=== PATIENT | female | born 2000 | race Caucasian/White ===

== ENCOUNTER 2023-09-30 19:09 | Emergency (ER) | payer BC, SELFPAY ==
[2023-09-30 19:14] VITALS: BP 147/98
[2023-09-30 19:31] LABS: % Basophils 0.7 % (0-2); % Eosinophils 4.4 % (0-6); % Immature Granulocytes 0.5 % (0-0.5); % Lymphocytes 39.5 % (20.5-51.1); % Monocytes 5.5 % (1.7-9.3); % Neutrophils 49.4 % (42.2-75.2); Absolute Basophils 0.1 10^3/uL (0-0.2); Absolute Eosinophils 0.5 10^3/uL (0-0.7); Absolute Immature Granulocytes 0.1 10^3/uL (0-0.05); Absolute Lymphocytes 4.8 10^3/uL (1.2-3.4); Absolute Monocytes 0.7 10^3/uL (0.1-0.6); Hematocrit 41.4 % (37.0-47.0); Hemoglobin 14.4 g/dL (12.0-16.0); Mean Corp Hgb Conc. 34.8 g/dL (33.0-37.0); Mean Corpuscular Hgb 28.9 pg (27.0-31.0); Mean Platelet Volume 9.1 fL (7.4-10.4); Nucleated Red Blood Cells % 0 %; Platelet Count 361 10^3/uL (130-400); Red Blood Cell Count 4.99 10^6/uL (4.20-5.40); Red Cell Dist. Width 13.2 % (11.5-14.5); White Blood Cell Count 12.1 10^3/uL (4.8-10.8)
[2023-09-30 19:52] LABS: ALT (SGPT) 48 U/L (0-35); AST (SGOT) 36 U/L (14-36); Albumin 4.4 g/dl (3.5-5.0); Alkaline Phosphatase 94 U/L (38-126); Blood Urea Nitrogen 6 mg/dl (7-17); Calcium 9.3 mg/dl (8.4-10.2); Carbon Dioxide 26 mmol/L (22-30); Chloride 105 mmol/L (98-107); Glucose 84 mg/dl (70-99); Lipase 54 U/L (23-300); Potassium 4.2 mmol/L (3.5-5.1); Sodium 137 mmol/L (135-145); Total Bilirubin 0.5 mg/dl (0.2-1.3); Total Protein 7.6 g/dl (6.3-8.2); eGFR > 60.00
[2023-09-30 20:08] LABS: Urine Albumin Trace (Neg - Trace); Urine Bilirubin 1+ (Negative); Urine Character Clear (Clear); Urine Color Yellow; Urine Glucose Negative (Negative); Urine Ketone Trace (Negative); Urine Leukocyte 2+ (Negative); Urine Nitrite Negative (Negative); Urine Occult Blood 1+ (Negative); Urine Urobilinogen Negative (Neg - 1+)
[2023-09-30 20:17] LABS: Urine Squamous Cell >30 /LPF (Few); Urine White Cell 21-25 /HPF (0-5)
[2023-09-30 20:18] LABS: Urine Bacteria Moderate (Negative)
[2023-09-30 22:58] LABS: Urine Albumin Negative (Neg - Trace); Urine Bilirubin Negative (Negative); Urine Character Clear (Clear); Urine Color Yellow; Urine Glucose Negative (Negative); Urine Ketone Negative (Negative); Urine Leukocyte Trace (Negative); Urine Nitrite Negative (Negative); Urine Occult Blood Negative (Negative); Urine Specific Gravity 1.005 (<1.030); Urine Urobilinogen Negative (Neg - 1+)
--- NOTE | 2023-09-30 23:03 | ED.GENMED ---
History of Present Illness
General
Chief Complaint: Abdominal Pain
Source: patient
Exam Limitations: none
Time Seen by Provider: 09/30/23 20:20
Nursing documentation reviewed up to this point in time: agreed with
Travel History
Have you had any contact with someone who has COVID-19?: No
Do you have any symptoms of coronavirus? Fever > 100 degrees, chills, cough, shortness of breath, sore throat, loss of taste or smell, muscle aches, or headache?: No
History of Present Illness
History of Present Illness:
Patient to ED with complaint of abdominal pain x 3 weeks. States pain has become progressively worse. Pain initally was diffuse but now is located on left side of abdomen. Denies fever/chills,n/v/d. She was sent for outpatient CT yesterday by
PCP. No concerning findings n CT. States PCP advised her to come to ED since she was still having pain. Brought to ED by sig/other.
Past History
Past History
ED Past Medical History: Asthma, Psychiatric (Anxiety, depression) and Other (Allergies)
ED Past Surgical History: Tonsilectomy and Other (wisdom teeth, ear tubes)
Social History
Tobacco: Non-smoker
Alcohol: Occasional
Drug: Marijuana (medical marijuana)
Living: with family
Review of Systems
Review of Systems
Allergies reviewed?: Yes
All Other Systems: ROS reviewed and negative except as documented in HPI and ROS
Constitutional: Reports no symptoms
EENT: Reports no symptoms
Respiratory: Reports no symptoms
Cardiac: Reports no symptoms
ABD/GI: Reports abdominal pain
: Reports no symptoms
Musculoskeletal: Reports no symptoms
Skin: Reports no symptoms
Neurological: Reports no symptoms
Psychiatric: Reports no symptoms
Phy Exam
General Physical Exam
General Presentation: well appearing and no apparent distress
General age: appears stated age
General Skin: warm and dry
General Habitus: normal
General Mental: alert
General Hydration: appears well hydrated
Cardiovascular Exam
Cardiovascular Exam: regular rate/rhythm and no edema
Pulmonary Exam
Pulmonary Exam: lungs clear and no respiratory distress
Gastrointestinal Exam
Gastrointestinal Exam: normal bowel sounds, soft, no organomegaly, no pulsatile mass, non distended and no cva tenderness
Palpation: generalized: Mild tenderness
Musculoskeletal Exam
Musculoskeletal Exam: full ROM and neuro vasc intact
Skin Exam
Skin Exam: normal color, warm/dry and no rash
Psychiatric Exam
Psychiatric Exam: normal mood/affect
Course
Orders/Labs/Results
Orders:
Orders
09/30/23 19:25
Complete Blood Count/With Diff Urgent
Comprehensive Metabolic Panel Urgent
Lipase Urgent
09/30/23 19:51
Urinalysis Reflex To Culture Urgent
Date Specimen was Collected: 09/30/23
Time Specimen was Collected: 19:17
Urine Microscopic Reflex Cult Urgent
Urine Culture Urgent
SANDEEP Source: U
Specimen Description:
Date Specimen was Collected: 09/30/23
Time Specimen was Collected: 19:17
09/30/23 20:45
US Pelvis Transvaginal Only Urgent
Reason For Exam: pain bilaterally
09/30/23 22:50
Urinalysis Urgent
Date Specimen was Collected: 09/30/23
Time Specimen was Collected: 22:49
Urine Microscopic Urgent
Date Specimen was Collected: 09/30/23
Time Specimen was Collected: 22:49
Abnormal Lab Results
09/30/23 09/30/23 09/30/23
19:25 19:51 22:50
WBC 12.1 H 10^3/uL
(4.8-10.8)
Abs Immat Gran (auto) 0.1 H 10^3/uL
(0-0.05)
Absolute Lymphs (auto) 4.8 H 10^3/uL
(1.2-3.4)
Absolute Monos (auto) 0.7 H 10^3/uL
(0.1-0.6)
BUN 6 L mg/dl
(7-17)
ALT 48 H U/L
(0-35)
Urine Ketones Trace A
(Negative)
Ur Occult Blood Reflex 1+ A
(Negative)
Urine Bilirubin 1+ A
(Negative)
Ur Leukocyte Esterase Trace A
(Negative)
Leukocyte Esterase Rfl 2+ A
(Negative)
Urine RBC 3-6 A /HPF
(0-2)
Urine WBC (Reflex) 21-25 A /HPF
(0-5)
Urine Bacteria (Reflex) Moderate A
(Negative)
09/30/23 19:25
09/30/23 19:25
Vital Signs
Initial and Last Documented VS:
Initial Vital Signs
Temp Pulse Pulse Ox
97.9 F 94 98
09/30/23 19:12 09/30/23 19:12 09/30/23 19:12
Last Documented Vital Signs
Temp Pulse BP Pulse Ox
97.9 F 94 147/98 98
09/30/23 19:12 09/30/23 19:12 09/30/23 19:14 09/30/23 19:12
*Critical Care Note
Total Time (30-74mins, 75-104mins- exclusive of procedures): Not Applicable
ED Attending Note
-
Portions of this chart may have been created with voice recognition software.� Occasional wrong word or��sound alike� substitutions may have occurred due to the inherent limitations of voice recognition software.
Discharge Plan
Departure
Patient Disposition: Home (Routine Discharge)
Date of Disposition: 09/30/23
Time of Disposition: 23:02
Patient with high blood pressure during this ER visit?: No
Condition: Good
Covid-19: Not Applicable
Discharge Problem:
Abdominal pain
Instructions: Abdominal Pain
Prescriptions:
No Action
albuterol sulfate [ProAir HFA] 8.5 GM HFA aerosol inhaler
8.5 gm IH QIDPRN PRN (Reason: wheezing/SOB)
Cryselle (28) 1 EACH tablet
1 ea PO Daily
fexofenadine-pseudoephedrine [Anegles-D 12 Hour] 60-120 mg Tablet Extended Release 12 Hr
1 tab PO DAILY
ondansetron 4 mg Tablet,Disintegrating
4 mg PO BIDPRN PRN (Reason: nausea/vomiting) Qty: 10 0RF
famotidine [Pepcid] 20 mg tablet
20 mg PO DAILY Qty: 14 0RF
cyclobenzaprine 10 mg tablet
10 mg PO TID PRN (Reason: muscle spasm) Qty: 10 0RF
Referrals:
Art Luu MD [Family Provider] - Tomorrow
Activity Restrictions/Additional Instructions:
Return to the emergency department for any changes in/worsening of your symptoms.
Interventions
Interventions:
*Risk Screen - Suicide Last Done: 09/30/23 19:14
*General Assessment Last Done: 09/30/23 19:14
*Neglect/Abuse Screening Last Done: 09/30/23 19:14
*ED COVID-19 Vaccine History Last Done: 09/30/23 19:14
RO-Vzegrq-Cooxuybgru Assessment Last Done: 09/30/23 21:03
[2023-09-30 23:08] LABS: Urine Red Blood Cell None Seen /HPF (0-2); Urine Squamous Cell 26-30 /LPF (Few)
== END 2023-09-30 23:07 | disposition home or self-care (01) ==
LOC: EMR 19:09
PROVIDERS: Nurse Practitioner; Student in an Organized Health Care Education/Training Program; EMERGENCY PHYSICIAN Emergency Medicine; FAMILY PHYSICIAN Family Medicine
DX: R10.9 Unspecified abdominal pain (principal); R11.0 Nausea; J45.909 Unspecified asthma, uncomplicated; F41.9 Anxiety disorder, unspecified; F32.A Depression, unspecified
CPT/HCPCS: 99284; 76830; 80053; 81003; 81015; 83690; 85025; 87086